=== PATIENT | female | born 1995 | race Hispanic/Latino ===

== ENCOUNTER 2023-02-16 20:31 | Emergency (ER) | payer OTHER ==
[~2023-02-16] VITALS: Ht 152.4 cm; Wt 42.6 kg
[2023-02-16 21:28] VITALS: BP 162/115
[2023-02-16] MEDS ORDERED: CHLORDIAZEPOXIDE HCL 25 MG CAP PO PRN (22:00)
[2023-02-16] MEDS ORDERED: M.V.I. IV [ADULT] 10 ML, FOLIC ACID 1 MG, THIAMINE HCL 100 MG in 0.9%NACL 1000ML 1,000 ML IV SCH (22:00)
[2023-02-16] MEDS ORDERED: LORAZEPAM 2 MG/ML 1 ML VIAL IVP ONE (22:00)
[2023-02-16] MEDS ORDERED: ONDANSETRON ODT 4MG TAB SL ONE (22:00)
[2023-02-16] MEDS ORDERED: MORPHINE 4 MG SYG IM ONE (22:00)
[2023-02-16] MEDS ORDERED: THIAMINE HCL 100 MG/ML 2ML VIAL ONE (22:06)
[2023-02-16] MEDS ORDERED: M.V.I. IV [ADULT] 10 ML VIAL IV ONE (22:07)
[2023-02-16 22:18] LABS: BILIRUBIN,URINE NEGATIVE (NEGATIVE); COLOR,URINE YELLOW (YELLOW); GLUCOSE, URINE (UA) NEGATIVE (NEGATIVE); KETONES,URINE 100 mg/dL (NEGATIVE); LEUKOCYTE ESTERASE ,URINE NEGATIVE Leu/uL (NEGATIVE); NITRATE,URINE NEGATIVE (NEGATIVE); OCCULT BLOOD,URINE NEGATIVE (NEGATIVE); PH,URINE 7.5 (5.0-8.0); PROTEIN,URINE 70 mg/dL (NEGATIVE); UROBILINOGEN,URINE 0.2 mg/dL (0.2-1.0)
[2023-02-16 22:21] LABS: APPEARANCE,URINE CLEAR (CLEAR)
[2023-02-16 22:22] LABS: MUCUS,URINE RARE LPF (None Seen); SQUAMOUS EPITHELIAL CELL,UR RARE /HPF (0-2)
[2023-02-16 22:26] LABS: AMPHET/METH SCREEN,URINE NEGATIVE (NEGATIVE); BARBITURATE SCREEN, URINE NEGATIVE (NEGATIVE); BENZODIAZEPINES SCREEN,URINE NEGATIVE (NEGATIVE); CANNABINOID SCREEN,URINE NEGATIVE (NEGATIVE); COCAINE SCREEN,URINE NEGATIVE (NEGATIVE); OPIATE SCREEN,URINE NEGATIVE (NEGATIVE); PHENCYCLIDINE SCREEN,URINE NEGATIVE (NEGATIVE)
[2023-02-16] MEDS ORDERED: 0.9%NACL 1000ML 1,000 ML IV ONE (22:30)
[2023-02-16 22:44] LABS: CARBON DIOXIDE 31 mmol/L (21-32); CHLORIDE 96 mmol/L (101-111); CREATININE 0.7 mg/dL (0.5-1.5); GLOMERULAR FILTR. RATE CALC 121 mL/min (>90); GLUCOSE,RANDOM 108 mg/dL (70-105); POTASSIUM 3.9 mmol/L (3.5-5.1); SODIUM SERUM 139 mmol/L (136-145); UREA NITROGEN, BLOOD 11 mg/dL (7-18)
[2023-02-16 22:48] LABS: BASOPHILS % (AUTO) 0.9 % (0.0-5.0); HEMATOCRIT 28.2 % (36-48); LYMPHOCYTES % (AUTO) 17.4 % (21.0-51.0); MEAN CORPUSCULAR HEMOGLOBIN 36.3 pg (27.0-33.0); MEAN CORPUSCULAR HGB CONC 34.4 g/dL (32.0-36.0); MEAN CORPUSCULAR VOLUME 105.6 fL (79-99); MONOCYTES % (AUTO) 9.9 % (3.0-13.0); NEUTROPHILS % (AUTO) 70.6 % (40.0-77.0); NUCLEATED RED BLOOD CELLS 0.4 % (0.0-0.19); PLATELET COUNT (AUTO) 183 K/uL (130-400); RED BLOOD CELL COUNT(AUTO) 2.67 MIL/uL (4.00-5.50); RED CELL DISTRIBUTION WIDTH 16.6 % (11.0-15.5); WHITE BLOOD COUNT (AUTO) 5.7 K/uL (4.8-10.8)
[2023-02-16 22:49] LABS: ALANINE AMINOTRANSFERASE 108 U/L (12-78); ALBUMIN 4.1 g/dL (3.5-5.0); ASPARTATE AMINOTRANSFERASE 256 U/L (10-37); TOTAL PROTEIN, SERUM 7.5 g/dL (6.0-8.3)
== END 2023-02-16 23:30 | disposition home or self-care (01) ==
LOC: EDH 20:31
DX: S82.891A Other fracture of right lower leg, initial encounter for closed fracture (principal); M79.671 Pain in right foot; X58.XXXA Exposure to other specified factors, initial encounter; Y93.02 Activity, running; Y92.89 Other specified places as the place of occurrence of the external cause; Y99.8 Other external cause status
CPT/HCPCS: 99284; 96374; 96375; 80053; 80305; 85025; 36415; 73600; 73630; 96372; 81001; J3411; J2060; J2270